=== PATIENT | male | born 1965 | race Caucasian/White ===

== ENCOUNTER 2023-07-19 19:59 | Emergency (ER) | payer MEDICAID, OTHER ==
[~2023-07-19 19:59] MED LIST: FAMO20TA44 PO; OMEP20CA15 PO
== END 2023-07-19 21:25 | disposition left against medical advice (07) ==
LOC: ER 19:59
DX: T17.208A Unspecified foreign body in pharynx causing other injury, initial encounter (principal); Z53.21 Procedure and treatment not carried out due to patient leaving prior to being seen by health care provider